=== PATIENT | male | born 1970 | race Hispanic/Latino ===

== ENCOUNTER 2024-06-06 12:52 | Emergency (ER) | payer SELFPAY ==
[2024-06-06] MEDS ORDERED: Ketorolac Tromethamine 30 MG (1 mL) VIAL ONE (13:22)
[2024-06-06] MEDS ORDERED: Cephalexin 500 MG CAP ONE (13:22)
[2024-06-06] MEDS ORDERED: Lidocaine 1% (PF) 30 ML VIAL ONE (13:22)
== END 2024-06-06 14:45 | disposition home or self-care (01) ==
LOC: MADERS 12:52
DX: S62.242B Displaced fracture of shaft of first metacarpal bone, left hand, initial encounter for open fracture (principal); W29.4XXA Contact with nail gun, initial encounter
CPT/HCPCS: 20520; 96372; J1885